=== PATIENT | male | born 1990 | race African-American/Black ===

== ENCOUNTER 2019-01-15 12:30 | Emergency (ER) | payer MEDICAID ==
[~2019-01-15] VITALS: Ht 172.7 cm; Wt 77.0 kg
[2019-01-15 12:32] VITALS: BP 133/75
[2019-01-15] MEDS ORDERED: PREDNISONE 20MG TABLET PO STA (13:02)
[2019-01-15] MEDS ORDERED: ALBUTEROL (0.083%) 2.5MG/3ML NEB HHN STA (13:02)
[2019-01-15] MEDS ORDERED: IPRATROPIUM BROMIDE (0.02%) 0.5MG/2.5ML NEB HHN STA (13:02)
== END 2019-01-15 14:57 | disposition home or self-care (01) ==
LOC: ER 12:30
DX: J40 Bronchitis, not specified as acute or chronic (principal); F12.10 Cannabis abuse, uncomplicated
CPT/HCPCS: 71045; 87804; 94640; 99284; J7512; J7611